=== PATIENT | female | born 1990 | race African-American/Black ===

== ENCOUNTER 2016-10-15 11:14 | Emergency (ER) | payer MEDICAID ==
[~2016-10-15] VITALS: Ht 167.6 cm; Wt 84.4 kg
[2016-10-15 11:54] VITALS: BP 139/92
--- NOTE | 2016-10-15 12:02 | NUR ---
PATIENT PRESENTS TO ED WITH ANTERIOR CHEST WALL PAIN WITH HARD CONTINUOUS COUGHING . PT STATES . DENIES N/V/D; SKIN IS PINK/WARM/DRY; AAOX4 WITH EVEN AND STEADY GAIT; LUNGS CLEAR BL; HR EVEN AND REGULAR; PT DENIES ANY FEVER, CP, SOB, OR COUGH AT THIS TIME; PATIENT STATES PAIN OF 6/10 AT THIS TIME; VSS; PATIENT POSITIONED FOR COMFORT; HOB ELEVATED; BEDRAILS UP X2; BED DOWN. ER MD MADE AWARE OF PT STATUS.
[2016-10-15 12:40] VITALS: BP 146/94
--- NOTE | 2016-10-15 12:40 | NUR ---
Patient discharged with v/s stable. Written and verbal after care instructions given and explained. Patient alert, oriented and verbalized understanding of instructions. Carried with steady gait. All questions addressed prior to discharge. ID band removed. Patient advised to follow up with PMD. Rx of PREDNISONE 20MG TAB & PULMICORT FLEXHALER 90MCG/ACTUATION given. Patient educated on indication of medication including possible reaction and side effects. Opportunity to ask questions provided and answered.
== END 2016-10-15 12:40 | disposition home or self-care (01) ==
LOC: MED 11:14
DX: J45.909 Unspecified asthma, uncomplicated (principal)
CPT/HCPCS: 99283